=== PATIENT | female | born 1980 | race Caucasian/White ===

== ENCOUNTER 2017-04-17 19:42 | Emergency (ER) | payer MEDICARE, OTHER ==
[~2017-04-17] VITALS: Ht 167.6 cm; Wt 65.0 kg
[2017-04-17 19:57] VITALS: BP 116/78; PULSE 70; RESP 18; TEMP 97.8; O2SAT 98
[2017-04-17] MEDS ORDERED: ZANA4CAP PO (20:10)
[2017-04-17] MEDS ORDERED: LEVO100T5 PO (20:10)
[2017-04-17] MEDS ORDERED: CYMB60CA PO (20:10)
[2017-04-17] MEDS ORDERED: LORA1TAB12 PO (20:10)
[2017-04-17] MEDS ORDERED: HYDR-3366 PO (20:10)
[2017-04-17] MEDS ORDERED: SUBO8MIS SL (20:10)
[2017-04-17] MEDS ORDERED: LABE200T2 PO (20:10)
[2017-04-17] MEDS ORDERED: ZYPR5TAB PO (20:10)
[2017-04-17] MEDS ORDERED: ACETAMINOPHEN/HYDROcodone 325 MG/10 MG TAB PO ONE (21:15)
--- NOTE | 2017-04-17 21:18 | PD ---
HPI Chief Complaint: Psychiatric Symptoms Time Seen by Provider: 21:14 Travel History International Travel<30 days: No Contact w/Intl Traveler<30days: No Traveled to known affect area: No History of Present Illness HPI 37-year-old female presents to the emergency Department under [place] act by local police. The patient reports history of bipolar disorder. She was in argument with her and she stated that she wanted to kill herself. She states she did this out of anger and did not mean it. She denies any suicidal or homicidal ideation. Patient has right nephrostomy tube. She states that she wants ago she had a started hemorrhaging. They did an emergent hysterectomy and cut her ureter. Therefore, they placed the nephrostomy tube. She states that this occurred in [place]. She will be returning to [place] to have it repaired and a stent placed. She states that she has pain to this area that is unchanged and has been ongoing for 2 months. She normally takes [place] 10/325 for her pain. She states that she is overdue for a pain pill. Patient is tearful my exam. She adamantly denies any thoughts of hurting herself or anybody else. She states she takes her medications as prescribed. Moderate severity. PFSH Past Medical History Bipolar Disorder: Yes Hypertension: Yes ?: Not Past Surgical History Hysterectomy: Yes Other Surgery: Yes (UROSTOMY ) Social History Alcohol Use: No Tobacco Use: No Substance Use: No Allergies-Medications (Allergen,Severity, Reaction): Coded Allergies: No Known Allergies (Unverified , 04/17/17) Reported Meds & Prescriptions Reported Meds & Active Scripts Active Reported Zanaflex (Tizanidine HCl) 4 Mg Cap 4 Mg PO DAILY Zyprexa (Olanzapine) 5 Mg Tab 5 Mg PO DAILY Suboxone Sublingual Film (Buprenorphine-Naloxone Sublingual Film) 8-2 Mg Film 1 Film SL Unique ID number required: Labetalol (Labetalol HCl) 200 Mg Tab 200 Mg PO TID Lorazepam 1 Mg Tab 1 Mg PO Q8H PRN Levothyroxine (Levothyroxine Sodium) 100 Mcg Tab 100 Mcg PO DAILY Cymbalta DR (Duloxetine HCl) 60 Mg Capdr 90 Mg PO DAILY [place] (Hydrocodone-Acetaminophen) 10-325 Mg Tab 1 Tab PO Q4H PRN Review of Systems Except as stated in HPI: all other systems reviewed are Neg Physical Exam Narrative GENERAL: Well-nourished, well-developed female patient, ambulatory. Afebrile. SKIN: Focused skin assessment warm/dry. HEAD: Normocephalic. Atraumatic EYES: No scleral icterus. No injection or drainage. NECK: Supple, trachea midline. No JVD or lymphadenopathy. CARDIOVASCULAR: Regular rate and rhythm without murmurs, gallops, or rubs. RESPIRATORY: Breath sounds equal bilaterally. No accessory muscle use. Lungs sounds are clear to auscultation. GASTROINTESTINAL: Abdomen soft, non-tender, nondistended. Patient has night nephrostomy tube noted. No erythema or drainage around the insertion site. MUSCULOSKELETAL: No cyanosis, or edema. BACK: Nontender without obvious deformity. No CVA tenderness. PSYCHIATRIC: No delusional thought processes. No hallucinations. Data Data Last Documented VS Vital Signs Date Time Temp Pulse Resp B/P (MAP) Pulse Ox O2 Delivery O2 Flow Rate FiO2 04/17/17 19:57 97.8 70 18 116/78 (91) 98 Orders Orders Complete Blood Count With Diff (04/17/17 21:12) Comprehensive Metabolic Panel (04/17/17 21:12) Urinalysis - C+S If Indicated (04/17/17 21:12) Psych Screen (04/17/17 21:12) Drug Screen, Random Urine (04/17/17 21:12) Alcohol (Ethanol) (04/17/17 21:12) Acetamin-Hydrocod 325-10 Mg ([place] 10-32 (04/17/17 21:15) Urine Culture (04/17/17 21:25) Ceftriaxone Inj (Rocephin Inj) (04/17/17 22:30) Lidocaine 1% Inj (50 Ml) (Xylocaine 1% I (04/17/17 22:30) Nitrofurantoin Monohyd Macrocr (Macrobid (04/17/17 22:45) Labs Laboratory Tests Test 04/17/17 21:25 White Blood Count 7.9 TH/MM3 Red Blood Count 4.24 MIL/MM3 Hemoglobin 12.7 GM/DL Hematocrit 37.0 % Mean Corpuscular Volume 87.3 FL Mean Corpuscular Hemoglobin 29.8 PG Mean Corpuscular Hemoglobin Concent 34.2 % Red Cell Distribution Width 15.1 % Platelet Count 260 TH/MM3 Mean Platelet Volume 7.2 FL Neutrophils (%) (Auto) 57.7 % Lymphocytes (%) (Auto) 28.9 % Monocytes (%) (Auto) 7.9 % Eosinophils (%) (Auto) 4.7 % Basophils (%) (Auto) 0.8 % Neutrophils # (Auto) 4.5 TH/MM3 Lymphocytes # (Auto) 2.3 TH/MM3 Monocytes # (Auto) 0.6 TH/MM3 Eosinophils # (Auto) 0.4 TH/MM3 Basophils # (Auto) 0.1 TH/MM3 CBC Comment DIFF FINAL Differential Comment Urine Color YELLOW Urine Turbidity HAZY Urine pH 5.5 Urine Specific [place] 1.013 Urine Protein NEG mg/dL Urine Glucose (UA) NEG mg/dL Urine Ketones NEG mg/dL Urine Occult Blood NEG Urine Nitrite NEG Urine Bilirubin NEG Urine Urobilinogen LESS THAN 2.0 MG/DL Urine Leukocyte Esterase LARGE Urine RBC 2 /hpf Urine WBC 57 /hpf Urine Squamous Epithelial Cells 1 /hpf Urine Bacteria MANY /hpf Urine Mucus FEW /lpf Microscopic Urinalysis Comment CULTURE INDICATED Blood Urea Nitrogen 15 MG/DL Creatinine 0.88 MG/DL Random Glucose 98 MG/DL Total Protein 8.1 GM/DL Albumin 4.0 GM/DL Calcium Level 9.1 MG/DL Alkaline Phosphatase 77 U/L Aspartate Amino Transf (AST/SGOT) 23 U/L Alanine Aminotransferase (ALT/SGPT) 34 U/L Total Bilirubin 0.3 MG/DL Sodium Level 137 MEQ/L Potassium Level 4.2 MEQ/L Chloride Level 103 MEQ/L Carbon Dioxide Level 27.0 MEQ/L Anion Gap 7 MEQ/L Estimat Glomerular Filtration Rate 72 ML/MIN Urine Opiates Screen NEG Urine Barbiturates Screen NEG Urine Amphetamines Screen NEG Urine Benzodiazepines Screen NEG Urine Cocaine Screen NEG Urine Cannabinoids Screen NEG Ethyl Alcohol Level LESS THAN 3 MG/DL [facility] Medical Decision Making Medical Screen Exam Complete: Yes Emergency Medical Condition: Yes Medical Record Reviewed: Yes Differential Diagnosis Depression versus anxiety versus bipolar disorder Narrative Course 37-year-old female presents to the emergency Department under [place] act by local police. Patient denies any current suicidal or homicidal ideation. She is reporting pain to her nephrostomy site which is an ongoing issue, not acute. CBC, CMP, alcohol level, urine drug screen are ordered and pending. CBC is unremarkable. CMP is unremarkable. Alcohol level is less than 3. UDS is negative. UA shows large leukocyte esterase, 57 wbc's. She states that this was not from her nephrostomy bag and she urinated this. I wanted to give patient Rocephin 1 g IM. However, she states that she has a fear of needles and declines this. She'll be started on Macrobid twice a day. Patient is medically cleared for psychiatric screening. Diagnosis Primary Impression: Bipolar disorder Qualified Codes: F31.9 - Bipolar disorder, unspecified Condition: Stable Gay Mercado Apr 17, 2017 21:18
[2017-04-17 21:44] LABS: AUTOMATED NEUTROPHIL # 4.5 TH/MM3 (1.8-7.7); BASOPHIL # 0.1 TH/MM3 (0-0.2); BASOPHIL % 0.8 % (0.0-2.0); EOSINOPHIL # 0.4 TH/MM3 (0-0.4); EOSINOPHIL % 4.7 % (0.0-4.0); HEMO FLAGS DIFF FINAL; LYMPH % 28.9 % (9.0-44.0); LYMPHOCYTE # 2.3 TH/MM3 (1.0-4.8); MEAN CELL VOLUME 87.3 FL (80.0-100.0); MEAN CORPUSCULAR HEMOGLOBIN 29.8 PG (27.0-34.0); MEAN CORPUSCULAR HGB CONC 34.2 % (32.0-36.0); MONO % 7.9 % (0.0-8.0); NEUT % 57.7 % (16.0-70.0); PLATELET COUNT 260 TH/MM3 (150-450); RED BLOOD COUNT 4.24 MIL/MM3 (4.00-5.30); RED CELL DISTRIBUTION WIDTH 15.1 % (11.6-17.2); WHITE BLOOD COUNT 7.9 TH/MM3 (4.0-11.0)
[2017-04-17 22:05] LABS: ANION GAP 7 MEQ/L (5-15); AST (GOT) 23 U/L (15-37); BLOOD UREA NITROGEN 15 MG/DL (7-18); CHLORIDE 103 MEQ/L (98-107); GLOMERULAR FILTRATION RATE 72 ML/MIN (>89); POTASSIUM 4.2 MEQ/L (3.5-5.1); SODIUM (NA) 137 MEQ/L (136-145)
[2017-04-17 22:08] LABS: BACTERIA, URINE MANY /hpf; BLOOD, URINE NEG (NEG); COMMENT (UR) CULTURE INDICATED; CULTURE IF INDICATED CULTURE INDICATED; GLUCOSE,URINE NEG (NEG); KETONE, URINE NEG (NEG); MUCUS URINE FEW /lpf (OCC); NITRITE,URINE NEG (NEG); PH, URINE 5.5 (5.0-8.5); SQUAMOUS EPITHELIAL CELL URINE 1 /hpf (0-5); URINE COLOR YELLOW (YELLW/STRAW)
[2017-04-17 22:11] LABS: ALKALINE PHOSPHATASE 77 U/L (45-117); ALT (GPT) 34 U/L (10-53); TOTAL BILIRUBIN ADULT 0.3 MG/DL (0.2-1.0)
[2017-04-17 22:27] LABS: ALCOHOL LESS THAN 3 MG/DL (0-5)
[2017-04-17] MEDS ORDERED: LIDOCAINE HCL 1% 50 ML VIAL XX ONE (22:30)
[2017-04-17] MEDS: NITROFURANTOIN MONOHYD MACROCR 100 MG CAP PO SCH (22:41)
[2017-04-18 01:14] VITALS: BP 107/68
[2017-04-18] MEDS ORDERED: KETOROLAC TROMETHAMINE 60 MG/2 ML (IM) VIAL IM ONE (02:30)
[2017-04-18] MEDS ORDERED: KETOROLAC TROMETHAMINE 30 MG/ML (IVP) VIAL IV PUSH ONE (02:30)
[2017-04-18 06:37] VITALS: BP 121/81; PULSE 72; RESP 16; O2SAT 98
[2017-04-18] MEDS ORDERED: LEVOTHYROXINE SODIUM 100 MCG TAB PO ONE (09:15)
[2017-04-18] MEDS ORDERED: DULoxetine HCl DR 60 MG CAP PO ONE (09:15)
[2017-04-18] MEDS ORDERED: ACETAMINOPHEN/HYDROcodone 325 MG/10 MG TAB PO ONE (09:15)
[2017-04-18] MEDS ORDERED: DULoxetine HCl DR 30 MG CAP PO ONE (09:30)
[2017-04-18] MEDS: NITROFURANTOIN MONOHYD MACROCR 100 MG CAP PO SCH (09:38)
--- NOTE | 2017-04-18 10:04 | PD ---
History of Present Illness Chief Complaint: Psychiatric Symptoms Time Seen by Provider: 09:30 Travel History International Travel<30 Days: No Contact w/Intl Traveler<30days: No Known affected area: No Legal Status Legal Status: Roly Act History of Present Illness: 37-year-old female [place] acted for making a suicidal statement. Patient denies any suicidal or homicidal ideation, plan or intent. In fact, she denies suicidality since she arrived. Apparently she got into an argument with her of 1-1/2 years. He left her at home with their son and was gone significantly longer than he had indicated. She and her moved to [place] from [place] recently and they are living with the patient's [id number]. Apparently the argument was so emotional, the [id number] took the baby inside and locked the patient and her out of the house. At this point, the patient has spoken with her [id number] and she is welcome to return there. PFSH Past Medical History Bipolar Disorder: Yes Hypertension: Yes ?: Not Past Surgical History Hysterectomy: Yes Other Surgery: Yes (UROSTOMY ) Psychiatric History Psychiatric History Hx Psychiatric Treatment: No formal psychiatric treatment according to the patient. History of Inpatient Treatment: No Guns or firearms in home: No Social History Hx Alcohol Use: No Hx Tobacco Use: No Hx Substance Use: No Allergies-Medications (Allergen,Severity, Reaction): Coded Allergies: No Known Allergies (Unverified , 04/18/17) Reported Meds & Prescriptions Reported Meds & Active Scripts Active Reported Zanaflex (Tizanidine HCl) 4 Mg Cap 4 Mg PO DAILY Zyprexa (Olanzapine) 5 Mg Tab 5 Mg PO DAILY Suboxone Sublingual Film (Buprenorphine-Naloxone Sublingual Film) 8-2 Mg Film 1 Film SL Unique ID number required: Labetalol (Labetalol HCl) 200 Mg Tab 200 Mg PO TID Lorazepam 1 Mg Tab 1 Mg PO Q8H PRN Levothyroxine (Levothyroxine Sodium) 100 Mcg Tab 100 Mcg PO DAILY Cymbalta DR (Duloxetine HCl) 60 Mg Capdr 90 Mg PO DAILY [place] (Hydrocodone-Acetaminophen) 10-325 Mg Tab 1 Tab PO Q4H PRN Review of Systems Psychiatric: COMPLAINS OF: Anxiety Except as stated in HPI: all other systems reviewed are Neg Mental Status Examination Appearance: Appropriate Consciousness: Alert Orientation: x4 Motor Activity: Normal gait Speech: Unremarkable Language: Adequate Fund of Knowledge: Adequate Attention and Concentration: Adequate Memory: Unremarkable Mood: Appropriate Affect: Appropriate Thought Process & Associations: Intact Thought Content: Appropriate Hallucination Type: None Delusion Type: None Suicidal Ideation: No Suicidal Plan: No Suicidal Intention: No Homicidal Ideation: No Homicidal Plan: No Homicidal Intention: No Insight: Adequate Judgment: Adequate MDM Medical Decision Making Medical Record Reviewed: Yes Assessment/Plan Patient interviewed at bedside. Medical record reviewed. Case discussed with nurse, Stephanie. Patient denies any suicidal or homicidal ideation, plan or intent. She has no psychotic thinking and her cognition is intact. She is verbally atul for safety and she is competent to do so. This physician sees no significant objective clinical evidence of bipolar disorder at this time. Patient does have medical issues which have been described elsewhere in this record but reviewed by this physician. Orders Orders Complete Blood Count With Diff (04/17/17 21:12) Comprehensive Metabolic Panel (04/17/17 21:12) Urinalysis - C+S If Indicated (04/17/17 21:12) Psych Screen (04/17/17 21:12) Drug Screen, Random Urine (04/17/17 21:12) Alcohol (Ethanol) (04/17/17 21:12) Acetamin-Hydrocod 325-10 Mg ([place] 10-32 (04/17/17 21:15) Urine Culture (04/17/17 21:25) Ceftriaxone Inj (Rocephin Inj) (04/17/17 22:30) Lidocaine 1% Inj (50 Ml) (Xylocaine 1% I (04/17/17 22:30) Nitrofurantoin Monohyd Macrocr (Macrobid (04/17/17 22:45) Ketorolac Inj (Toradol Inj) (04/18/17 02:30) Ketorolac Inj (Toradol Inj) (04/18/17 02:30) Dulgamaliel Pérez (Aleja Pérez) (04/18/17 09:15) Levothyroxine (Synthroid) (04/18/17 09:15) Acetamin-Hydrocod 325-10 Mg ([place] 10-32 (04/18/17 09:15) Duloxetine (Aleja Pérez) (04/18/17 09:30) Results Vital Signs Date Time Temp Pulse Resp B/P (MAP) Pulse Ox O2 Delivery O2 Flow Rate FiO2 04/18/17 06:37 72 16 121/81 (94) 98 Room Air 04/18/17 03:37 16 04/18/17 01:14 60 16 107/68 (81) 95 04/17/17 23:18 16 04/17/17 19:57 97.8 70 18 116/78 (91) 98 Laboratory Tests Test 04/17/17 21:25 White Blood Count 7.9 Red Blood Count 4.24 Hemoglobin 12.7 Hematocrit 37.0 Mean Corpuscular Volume 87.3 Mean Corpuscular Hemoglobin 29.8 Mean Corpuscular Hemoglobin Concent 34.2 Red Cell Distribution Width 15.1 Platelet Count 260 Mean Platelet Volume 7.2 Neutrophils (%) (Auto) 57.7 Lymphocytes (%) (Auto) 28.9 Monocytes (%) (Auto) 7.9 Eosinophils (%) (Auto) 4.7 Basophils (%) (Auto) 0.8 Neutrophils # (Auto) 4.5 Lymphocytes # (Auto) 2.3 Monocytes # (Auto) 0.6 Eosinophils # (Auto) 0.4 Basophils # (Auto) 0.1 CBC Comment DIFF FINAL Differential Comment Urine Color YELLOW Urine Turbidity HAZY Urine pH 5.5 Urine Specific [place] 1.013 Urine Protein NEG Urine Glucose (UA) NEG Urine Ketones NEG Urine Occult Blood NEG Urine Nitrite NEG Urine Bilirubin NEG Urine Urobilinogen LESS THAN 2.0 Urine Leukocyte Esterase LARGE Urine RBC 2 Urine WBC 57 Urine Squamous Epithelial Cells 1 Urine Bacteria MANY Urine Mucus FEW Microscopic Urinalysis Comment CULTURE INDICATED Blood Urea Nitrogen 15 Creatinine 0.88 Random Glucose 98 Total Protein 8.1 Albumin 4.0 Calcium Level 9.1 Alkaline Phosphatase 77 Aspartate Amino Transf (AST/SGOT) 23 Alanine Aminotransferase (ALT/SGPT) 34 Total Bilirubin 0.3 Sodium Level 137 Potassium Level 4.2 Chloride Level 103 Carbon Dioxide Level 27.0 Anion Gap 7 Estimat Glomerular Filtration Rate 72 Urine Opiates Screen NEG Urine Barbiturates Screen NEG Urine Amphetamines Screen NEG Urine Benzodiazepines Screen NEG Urine Cocaine Screen NEG Urine Cannabinoids Screen NEG Ethyl Alcohol Level LESS THAN 3 Date/Time Source Procedure Growth Status 04/17/17 21:25 Urine Clean Catch Urine Culture Pending Worksheet Diagnosis Primary Impression: Adjustment disorder with mixed disturbance of emotions and conduct Condition: Chay Azul MD Apr 18, 2017 10:04
[2017-04-18] MEDS ORDERED: LORazepam 1 MG TAB PO ONE (10:15)
--- NOTE | 2017-04-18 11:08 | PD ---
Physical Exam Narrative GENERAL: SKIN: Warm and dry. HEAD: Atraumatic. Normocephalic. EYES: Pupils equal and round. No scleral icterus. No injection or drainage. ENT: No nasal bleeding or discharge. Mucous membranes pink and moist. NECK: Trachea midline. No JVD. CARDIOVASCULAR: Regular rate and rhythm. RESPIRATORY: No accessory muscle use. Clear to auscultation. Breath sounds equal bilaterally. GASTROINTESTINAL: Abdomen soft, non-tender, nondistended.... RIGHT NEPHROSTOMY TUBE IN PLACE MUSCULOSKELETAL: Extremities without clubbing, cyanosis, or edema. No obvious deformities. NEUROLOGICAL: Awake and alert. No obvious cranial nerve deficits. Motor grossly within normal limits. Five out of 5 muscle strength in the arms and legs. Normal speech. PSYCHIATRIC: Appropriate mood and affect; insight and judgment normal. Data Data Last Documented VS Vital Signs Date Time Temp Pulse Resp B/P (MAP) Pulse Ox O2 Delivery O2 Flow Rate FiO2 04/18/17 06:37 72 16 121/81 (94) 98 Room Air 04/17/17 19:57 97.8 Orders Orders Complete Blood Count With Diff (04/17/17 21:12) Comprehensive Metabolic Panel (04/17/17 21:12) Urinalysis - C+S If Indicated (04/17/17 21:12) Psych Screen (04/17/17 21:12) Drug Screen, Random Urine (04/17/17 21:12) Alcohol (Ethanol) (04/17/17 21:12) Acetamin-Hydrocod 325-10 Mg ([place] 10-32 (04/17/17 21:15) Urine Culture (04/17/17 21:25) Ceftriaxone Inj (Rocephin Inj) (04/17/17 22:30) Lidocaine 1% Inj (50 Ml) (Xylocaine 1% I (04/17/17 22:30) Nitrofurantoin Monohyd Macrocr (Macrobid (04/17/17 22:45) Ketorolac Inj (Toradol Inj) (04/18/17 02:30) Ketorolac Inj (Toradol Inj) (04/18/17 02:30) Duloxetine (Cymbalta Dr) (04/18/17 09:15) Levothyroxine (Synthroid) (04/18/17 09:15) Acetamin-Hydrocod 325-10 Mg ([place] 10-32 (04/18/17 09:15) Duloxetine Dr (Cymbalta ) (04/18/17 09:30) Lorazepam (Ativan) (04/18/17 10:15) Ed Discharge Order (04/18/17 11:08) Labs Laboratory Tests Test 04/17/17 21:25 White Blood Count 7.9 TH/MM3 Red Blood Count 4.24 MIL/MM3 Hemoglobin 12.7 GM/DL Hematocrit 37.0 % Mean Corpuscular Volume 87.3 FL Mean Corpuscular Hemoglobin 29.8 PG Mean Corpuscular Hemoglobin Concent 34.2 % Red Cell Distribution Width 15.1 % Platelet Count 260 TH/MM3 Mean Platelet Volume 7.2 FL Neutrophils (%) (Auto) 57.7 % Lymphocytes (%) (Auto) 28.9 % Monocytes (%) (Auto) 7.9 % Eosinophils (%) (Auto) 4.7 % Basophils (%) (Auto) 0.8 % Neutrophils # (Auto) 4.5 TH/MM3 Lymphocytes # (Auto) 2.3 TH/MM3 Monocytes # (Auto) 0.6 TH/MM3 Eosinophils # (Auto) 0.4 TH/MM3 Basophils # (Auto) 0.1 TH/MM3 CBC Comment DIFF FINAL Differential Comment Urine Color YELLOW Urine Turbidity HAZY Urine pH 5.5 Urine Specific [place] 1.013 Urine Protein NEG mg/dL Urine Glucose (UA) NEG mg/dL Urine Ketones NEG mg/dL Urine Occult Blood NEG Urine Nitrite NEG Urine Bilirubin NEG Urine Urobilinogen LESS THAN 2.0 MG/DL Urine Leukocyte Esterase LARGE Urine RBC 2 /hpf Urine WBC 57 /hpf Urine Squamous Epithelial Cells 1 /hpf Urine Bacteria MANY /hpf Urine Mucus FEW /lpf Microscopic Urinalysis Comment CULTURE INDICATED Blood Urea Nitrogen 15 MG/DL Creatinine 0.88 MG/DL Random Glucose 98 MG/DL Total Protein 8.1 GM/DL Albumin 4.0 GM/DL Calcium Level 9.1 MG/DL Alkaline Phosphatase 77 U/L Aspartate Amino Transf (AST/SGOT) 23 U/L Alanine Aminotransferase (ALT/SGPT) 34 U/L Total Bilirubin 0.3 MG/DL Sodium Level 137 MEQ/L Potassium Level 4.2 MEQ/L Chloride Level 103 MEQ/L Carbon Dioxide Level 27.0 MEQ/L Anion Gap 7 MEQ/L Estimat Glomerular Filtration Rate 72 ML/MIN Urine Opiates Screen NEG Urine Barbiturates Screen NEG Urine Amphetamines Screen NEG Urine Benzodiazepines Screen NEG Urine Cocaine Screen NEG Urine Cannabinoids Screen NEG Ethyl Alcohol Level LESS THAN 3 MG/DL [facility] Medical Record Reviewed: Yes Supervised Visit with SANDRA: No Narrative Course PATIENT IS MEDICALLY CLEARED FOR PSYCHIATRIC EVALUATION. PATIENT DENIES SI/HI AND PARSONS ACT CURRENTLY.... PARSONS ACT LIFTED BY DR JUAREZ PSYCHIATRIST EVALUATED PATIENT THOROUGHLY AND RECOMMENDS RELEASE/DISCHARGE HOME Diagnosis Primary Impression: Adjustment disorder with mixed disturbance of emotions and conduct Patient Instructions: General Instructions Scripts Nitrofurantoin Monohydrate Macrocrystals (Macrobid) 100 Mg Capsule 100 MG PO BID for Infection for 5 Days, #10 CAP 0 Refills Prov: Milind Franco MD 04/18/17 Disposition: DISCHARGE HOME Condition: Stable Milind Franco MD Apr 18, 2017 11:08
[2017-04-18] MEDS ORDERED: MACR100C2 PO (11:11)
== END 2017-04-18 15:24 | disposition home or self-care (01) ==
LOC: NEDAMB 19:42 → NEPE 04-18 15:24
DX: F43.25 Adjustment disorder with mixed disturbance of emotions and conduct (principal); F31.9 Bipolar disorder, unspecified; Z79.899 Other long term (current) drug therapy
CPT/HCPCS: 80053; 80307; 81001; 85025; 87086; 96372; 96374; 99284; J1885